=== PATIENT | female | born 1985 | race Two or more races ===

== ENCOUNTER 2017-11-17 21:08 | Emergency (ER) | payer MEDICAID, OTHER, SELFPAY ==
[~2017-11-17] VITALS: Ht 165.1 cm; Wt 105.0 kg
[~2017-11-17 21:08] MED LIST: CHOLESTEROL MED; INSULIN LEVIMIR SQ; LISI-167 PO; METF10002 PO
[2017-11-17 21:14] VITALS: BP 125/82
== END 2017-11-17 22:06 | disposition home or self-care (01) ==
LOC: ED 21:56
DX: L85.8 Other specified epidermal thickening (principal); R21 Rash and other nonspecific skin eruption; E11.9 Type 2 diabetes mellitus without complications
CPT/HCPCS: 99283

== ENCOUNTER 2019-06-24 22:21 | Emergency (ER) | payer MEDICAID, OTHER ==
[~2019-06-24] VITALS: Ht 165.1 cm; Wt 103.7 kg
[2019-06-24] MEDS ORDERED: KETOROLAC 30 MG/1 ML ONE (22:44)
[2019-06-24 22:47] LABS: BASOPHILS # (AUTO) 0.01 x10^3/uL (0-0.1); BASOPHILS % (AUTO) 0 % (0-1); EOSINOPHILS # (AUTO) 0.21 x10^3/uL (0-0.4); EOSINOPHILS % (AUTO) 2 % (1-7); LYMPHOCYTES % (AUTO) 36 % (22-44); MD NO; MEAN CORPUSCULAR HGB CONC 33.9 g/dL (32.4-35.8); MEAN CORPUSCULAR VOLUME 85.5 fL (80-100); MEAN PLATELET VOLUME 10.1 fL (7.4-10.4); MONOCYTES # (AUTO) 0.64 x10^3/uL (0.2-0.8); MONOCYTES % (AUTO) 5 % (2-9); NEUTROPHILS # (AUTO) 6.96 x10^3/uL (1.8-6.8); NEUTROPHILS % (AUTO) 57 % (42-75); PLATELET COUNT 251 x10^3/uL (130-400); RED CELL DISTRIBUTION WIDTH 13.7 % (9.6-15.2)
[2019-06-24 23:00] LABS: ALANINE AMINOTRANSFERASE 21 U/L (12-78); ANION GAP 7 mmol/L (5-15); CALCIUM 8.4 mg/dL (8.5-10.1); CHLORIDE 106 mmol/L (98-107); CREATININE 0.64 mg/dL (0.55-1.02)
[2019-06-24] MEDS ORDERED: KETOROLAC 30 MG/1 ML IM ONE (23:00)
[2019-06-24 23:02] LABS: ALKALINE PHOSPHATASE 90 U/L (45-117); BILIRUBIN,TOTAL 0.3 mg/dL (0.2-1.0); TOTAL PROTEIN 7.2 g/dL (6.4-8.2)
[2019-06-24 23:13] LABS: HCG UR SG 1.042 (1.003-1.030); MICROSCOPIC NOT IND
[2019-06-24 23:15] LABS: CULTURE INDICATED? NO
[2019-06-24 23:35] VITALS: BP 138/74
== END 2019-06-24 23:38 | disposition home or self-care (01) ==
LOC: ED 23:25
DX: M54.9 Dorsalgia, unspecified (principal); E11.9 Type 2 diabetes mellitus without complications
CPT/HCPCS: 36415; 80053; 81003; 81025; 85025; 96372; 99283; J1885